=== PATIENT | female | born 1950 | race Caucasian/White ===

== ENCOUNTER 2016-08-26 06:07 | Inpatient (IN) | payer MEDICARE, OTHER ==
[2016-08-13 11:34] VITALS: BMI 31.2
[~2016-08-26 06:07] MED LIST: DEXAMETHASONE SOD PHOSPHATE 10 MG/ML 1 ML VIAL IV ONE; LACTATED RINGERS 1,000 ML IV SCH; MIDAZOLAM 2 MG/2 ML VIAL IV PRN; TRANEXAMIC ACID 1,000 MG in SODIUM CHLORIDE 0.9% 100 ML IVPB ONE
[2016-08-26] MEDS: ONDANSETRON 4 MG/2 ML VIAL IVP ONE ×2 (06:50→09:39)
[2016-08-26 06:53] LABS: Glucose,Whole Blood 150 mg/dL (75-99)
[2016-08-26] MEDS ORDERED: fentaNYL (PF) 50 MCG/ML 2 ML AMP ONE (07:03)
[2016-08-26] MEDS ORDERED: TRANEXAMIC ACID 1,000 MG/10 ML VIAL ONE (07:03)
[2016-08-26] MEDS ORDERED: LIDOCAINE 1% INJ 10MG/ML (20 ML MDV) ONE (07:03)
[2016-08-26] MEDS ORDERED: diphenhydrAMINE 50 MG/ML 1 ML VIAL ONE (07:03)
[2016-08-26] MEDS ORDERED: PROPOFOL 10 MG/ML 20 ML VIAL IV ONE (07:03)
[2016-08-26] MEDS ORDERED: HYDROmorphone (PF) 1 MG/ML ONE (07:03)
[2016-08-26] MEDS ORDERED: MIDAZOLAM 2 MG/2 ML VIAL ONE (07:03)
[2016-08-26] MEDS: ceFAZolin 2 GM in SODIUM CHLORIDE 0.9% 100 ML IVPB ONE ×2 (07:03→10:40)
[2016-08-26] MEDS ORDERED: SODIUM CHLORIDE 0.9% 100 ML BAG ONE (07:03)
[2016-08-26] MEDS ORDERED: KETOROLAC 30 MG/ML 1 ML VIAL ONE (07:03)
[2016-08-26] MEDS ORDERED: ceFAZolin 3,000 MG in SODIUM CHLORIDE 0.9% IRRIGATIO 3,000 ML IRRIGATION ONE (07:39)
[2016-08-26] MEDS ORDERED: LACTATED RINGERS 1,000 ML IV ONE (08:25)
[2016-08-26] MEDS ORDERED: NALOXONE 0.4 MG/ML 1 ML VIAL IV PRN (09:17)
[2016-08-26] MEDS ORDERED: MAGNESIUM HYDROXIDE 2,400 MG/10 ML CUP PO PRN (09:17)
[2016-08-26] MEDS ORDERED: TEMAZEPAM 15 MG CAP PO PRN (09:17)
[2016-08-26] MEDS ORDERED: NA PHOS,M-B/NA PHOS,DI-BA 133 ML ENEMA RECTAL PRN (09:17)
[2016-08-26] MEDS ORDERED: BISACODYL 10 MG SUPP RECTAL PRN (09:17)
[2016-08-26] MEDS ORDERED: HYDROcodone/APAP 7.5-325MG 1 EACH TAB PO PRN ×2 (09:17)
[2016-08-26] MEDS ORDERED: HYDROmorphone 1 MG/ML 1 ML SYRINGE IVP PRN ×3 (09:17)
[2016-08-26] MEDS: HYDROmorphone 1 MG/ML 1 ML SYRINGE IVP PRN ×4 (09:39→09:57)
[2016-08-26 09:55] LABS: Glucose,Whole Blood 189 mg/dL (75-99)
[2016-08-26] MEDS: LACTATED RINGERS 1,000 ML IV SCH ×2 (10:41→19:58)
[2016-08-26 11:37] LABS: Glucose,Whole Blood 230 mg/dL (75-99)
[2016-08-26] MEDS: HYDROmorphone PCA 5 MG/25 ML SYRINGE IV PRN ×2 (13:59→17:52)
--- NOTE | 2016-08-26 14:26 | XR ---
Left knee, limited HISTORY: Postop left knee arthroplasty 2 views of the left knee No comparisons Patient is status post left knee arthroplasty. Alignment is maintained. Lucency in the soft tissue co mpatible with postop change. There is a metallic density present just superior to the patella measuri ng approximately 3 to 4 mm in length which may represent a small foreign body, needle tip. IMPRESSION: Orthopedic follow-up. Retained foreign body as described. A Red message has been communicated to Zaira Tineo via the [employer] Critical Result system on 08/26/2016 10:27 AM, Message ID [id number].
--- NOTE | 2016-08-26 16:17 | CONS ---
DATE OF CONSULTATION: REASON FOR CONSULTATION: Advice regarding diabetes mellitus, asthma requested by Orthopedic Surgery. HISTORY OF PRESENT ILLNESS: This 66-year-old woman with past medical history of asthma, diabetes mellitus, GERD, hyperlipidemia, history of hypothyroidism, history of back surgery, DJD, history of cholecystectomy, being followed by Dr. Resendez in the outpatient setting admitted after left total knee arthroplasty. The patient underwent GA. Currently the patient is recovering from that anesthesia. The patient is still able to give a coherent history and also complaining of severe pain. There is no history of chest pain, no history of palpitations. No history of headache, loss of consciousness, seizures. No nausea, vomiting, diarrhea, fever or chills at this time. PAST MEDICAL HISTORY: History of asthma, diabetes mellitus, gastroesophageal reflux disease, hypertension, hypothyroidism, cholecystectomy. Medications prior to admission include home medications are: 1. Coumadin 2.5 mg q.48 hours and 7.1 mg once 2. VESIcare 10 mg q.h.s. 3. Saxaglipitin 2.5 mg p.o. daily. 4. Prandin 0.5 mg p.o. t.i.d. with meals. 5. Actos 45 mg daily. 6. Prilosec 20 mg with breakfast. 7. Multivitamin 1 p.o. daily. 8. [place] 5 mg 1 to 2 tablets q.4-6 p.r.n. 9. Lipitor 10 mg p.o. daily. ALLERGIES: TITANIUM, C[place]FL[place], PROZAC. FAMILY HISTORY: History of diabetes in the family. SOCIAL HISTORY: No history of smoking. No history of alcohol intake. REVIEW OF SYSTEMS: ENT: No diminished hearing or vision. CARDIOVASCULAR: No angina. RESPIRATORY: No cough or hemoptysis. GI: No nausea. : No dysuria. NERVOUS SYSTEM: No numbness or weakness. ALLERGY/IMMUNOLOGY: No asthma or hayfever. MUSCULOSKELETAL: As mentioned earlier. HEMATOLOGY: No history of anemia. ENDOCRINE: As mentioned earlier. CONSTITUTIONAL: As mentioned earlier. DERMATOLOGY: Negative. RHEUMATOLOGY: Negative. PSYCHIATRY: As mentioned earlier. PHYSICAL EXAMINATION: Alert and oriented x3. Pulse is 105, blood pressure is 150/70, respirations 20, temperature 98 degrees, pulse ox 90% on 4-L. HEENT: Conjunctivae normal. Oral mucosa moist. NECK: No jugular venous distention. No carotid bruit. No lymph node enlargement. CARDIOVASCULAR: S1 and S2. No S3, no S4. RESPIRATORY: Breath sounds diminished at the bases. No rhonchi, no crackles. ABDOMEN: Soft, obese, nontender. No mass palpable. LEGS: Status post surgery knee surgery. NERVOUS SYSTEM: Higher function as mentioned. Moves all four limbs. No focal motor deficits. LYMPHATIC: No lymphadenopathy in the neck, axillae or groin. SKIN: No ulcer, rash or bleeding. LABS: At this time shows glucose is 230. Other labs are noted. ASSESSMENT: 1. Status post left total knee joint arthroplasty. 2. Diabetes mellitus type 2. 3. History of asthma. 4. History of gastroesophageal reflux disease. 5. Hyperlipidemia. 6. Hypothyroidism. 7. History of stomach ulcer. 8. History of section. 9. History of cholecystectomy. 10. Obesity with body mass index of 31.2. RECOMMENDATIONS AND DISCUSSION: In this 60-year-old woman who presented with multiple medical problems, we will monitor the patient closely. Continue the current medications. Continue symptomatic treatment. We will resume the home medications. DVT prophylaxis. GI prophylaxis. Follow the patient closely. Patient may be asked to follow up with Dr. Resendez closely after discharge. Thank you for letting us participate in the care of this patient. EVANGELINA
[2016-08-26 17:16] LABS: Glucose,Whole Blood 255 mg/dL (75-99)
[2016-08-26] MEDS: PANTOPRAZOLE 40 MG TABLET PO SCH (17:59)
[2016-08-26] MEDS: ceFAZolin 2 GM in SODIUM CHLORIDE 0.9% 100 ML IVPB SCH ×2 (17:59→23:41)
[2016-08-26] MEDS: REPAGLINIDE 0.5 MG TAB PO SCH (17:59)
[2016-08-26] MEDS ORDERED: WARFARIN 5 MG TAB PO ONE (18:00)
[2016-08-26] MEDS: INSULIN LISPRO (humaLOG) 300 UNIT/3 ML VIAL SQ SCH ×2 (18:43→21:10)
[2016-08-26] MEDS: SENNOSIDES-DOCUSATE SODIUM 1 EACH TAB PO SCH (20:00)
[2016-08-26] MEDS: OXYBUTYNIN XL 5 MG TAB.ER.24 PO SCH (20:00)
[2016-08-26 21:21] LABS: Glucose,Whole Blood 169 mg/dL (75-99)
[2016-08-27] MEDS: HYDROmorphone PCA 5 MG/25 ML SYRINGE IV PRN (03:09)
[2016-08-27] MEDS: LACTATED RINGERS 1,000 ML IV SCH (05:02)
[2016-08-27 07:05] LABS: Glucose,Whole Blood 161 mg/dL (75-99)
[2016-08-27 07:34] LABS: INR 1.7 (<1.1); Prothrombin Time 16.5 sec (9.0-12.0)
[2016-08-27 07:44] LABS: Anion Gap 12 mmol/L; Blood Urea Nitrogen 19 mg/dL (7-17); Calcium 8.2 mg/dL (8.4-10.2); Carbon Dioxide 28 mmol/L (22-30); Chloride 99 mmol/L (98-107); Glucose 176 mg/dL (74-99); Non-African American GFR(MDRD) >60 (>60 ml/min/1.73 sqM); Sodium 139 mmol/L (137-145)
[2016-08-27 07:53] LABS: Basophils % (A) 0 %; CH 32.8; CHCM 32.1; Eosinophils % (A) 0 %; HCT 37.4 % (34.0-46.0); HDW 2.23; HGB 12.1 gm/dL (11.4-16.0); Luc # (Auto) 0.44; Luc % (Auto) 3; Lymphocytes # (A) 1.3 k/uL (1.0-4.8); Lymphocytes % (A) 8 %; MCH 33.1 pg (25.0-35.0); MCHC 32.3 g/dL (31.0-37.0); MCV 102.4 fL (80.0-100.0); Mean Platelet Volume 7.1; Monocytes # (A) 1.2 k/uL (0-1.0); Monocytes % (A) 7 %; Neutrophils # (A) 13.8 k/uL (1.3-7.7); Neutrophils % (A) 83 %; RBC 3.66 m/uL (3.80-5.40); RDW 12.4 % (11.5-15.5); WBC 16.7 k/uL (3.8-10.6); WBC (Perox) 17.88
[2016-08-27] MEDS: REPAGLINIDE 0.5 MG TAB PO SCH ×2 (07:57→12:36)
[2016-08-27] MEDS: ATORVASTATIN 10 MG TAB PO SCH (07:57)
[2016-08-27] MEDS: PIOGLITAZONE 45 MG TAB PO SCH (07:57)
[2016-08-27] MEDS: LINAGLIPTIN 5 MG TABLET PO SCH (07:57)
[2016-08-27] MEDS: PANTOPRAZOLE 40 MG TABLET PO SCH (07:57)
[2016-08-27] MEDS: hydrOXYzine PAMOATE 25 MG CAP PO PRN ×3 (07:57→17:52)
--- NOTE | 2016-08-27 08:42 | P.PN ---
Subjective Principal diagnosis: Status post left total knee arthroplasty This is a 66 year-old female post left total knee arthroplasty. This is post- op day 1. The patient was evaluated at the bedside today. The patient denies nausea, vomiting, abdominal pain, shortness of breath, and chest pain this morning. She states her pain is midly controlled at this time. The patient has not been up with physical therapy yet this morning. Objective - Vital Signs Vital signs: Vital Signs Temp 98.7 F 08/27/16 03:51 Pulse 112 H 08/27/16 03:51 Resp 16 08/27/16 03:51 BP 125/58 08/27/16 03:51 Pulse Ox 95 08/27/16 03:51 Intake & Output 08/26/16 08/27/16 08/27/16 18:59 06:59 18:59 Intake Total 3272 1750 Output Total 1200 750 Balance 2072 1000 Weight 82.554 kg Intake: IV 2552 900 Lactated Ringers 1,000 ml 700 900 @ 100 mls/hr IV .Q10H NERIS Rx#:[id number] ceFAZolin 2 gm In Sodium 100 Chloride 0.9% 100 ml @ 100 mls/hr IVPB ONCE ONE Rx#:[id number] Oral 720 850 Output: Urine 1150 750 Estimated Blood Loss 50 Other: Voiding Method Indwelling Catheter - Exam The patient does not appear in acute distress. Alert and orientated x3. Dressing is clean dry and intact. Incision appears fine with no erythema or active drainage. Calf is soft and nontender. Good foot and ankle motion without difficulty. Sensation and circulatory status is intact. - Labs CBC & Chem 7: 08/27/16 07:00 08/27/16 07:00 Labs: Abnormal Lab Results - Last 24 Hours (Table) 08/26/16 08/26/16 08/26/16 Range/Units 09:52 11:35 17:13 WBC (3.8-10.6) k/uL RBC (3.80-5.40) m/uL MCV (80.0-100.0) fL Neutrophils # (1.3-7.7) k/uL Monocytes # (0-1.0) k/uL PT (9.0-12.0) sec BUN (7-17) mg/dL Glucose (74-99) mg/dL POC Glucose (mg/dL) 189 H 230 H 255 H (75-99) mg/dL Calcium (8.4-10.2) mg/dL 08/26/16 08/27/16 08/27/16 Range/Units 21:07 07:00 07:00 WBC 16.7 H (3.8-10.6) k/uL RBC 3.66 L (3.80-5.40) m/uL MCV 102.4 H (80.0-100.0) fL Neutrophils # 13.8 H (1.3-7.7) k/uL Monocytes # 1.2 H (0-1.0) k/uL PT 16.5 H (9.0-12.0) sec BUN (7-17) mg/dL Glucose (74-99) mg/dL POC Glucose (mg/dL) 169 H (75-99) mg/dL Calcium (8.4-10.2) mg/dL 08/27/16 08/27/16 Range/Units 07:00 07:03 WBC (3.8-10.6) k/uL RBC (3.80-5.40) m/uL MCV (80.0-100.0) fL Neutrophils # (1.3-7.7) k/uL Monocytes # (0-1.0) k/uL PT (9.0-12.0) sec BUN 19 H (7-17) mg/dL Glucose 176 H (74-99) mg/dL POC Glucose (mg/dL) 161 H (75-99) mg/dL Calcium 8.2 L (8.4-10.2) mg/dL Laboratory Tests 08/27/16 07:00 PT 16.5 H INR 1.7 Assessment and Plan (1) Primary localized osteoarthritis of left knee Status: Acute (2) Status post total left knee replacement not using cement Status: Acute Plan: 1. Continue pain control 2. Anticoagulation with Coumadin per protocol 3. Start physical therapy, CPM, and ambulation 4. Anticipate discharge home with homecare upon discharge
[2016-08-27] MEDS: ONDANSETRON 4 MG/2 ML VIAL IVP PRN ×2 (09:40→12:41)
[2016-08-27] MEDS: INSULIN LISPRO (humaLOG) 300 UNIT/3 ML VIAL SQ SCH ×4 (09:43→20:55)
[2016-08-27] MEDS ORDERED: HYDROcodone/APAP 10-325MG 1 EACH TAB PO PRN (10:39)
[2016-08-27 10:45] LABS: Hemoglobin A1C 6.8 % (4.2-6.1)
[2016-08-27] MEDS: KETOROLAC 30 MG/ML 1 ML VIAL IVP SCH ×3 (11:19→23:40)
[2016-08-27] MEDS: MULTIVITAMINS, THERA 1 EACH TAB PO SCH (12:36)
[2016-08-27] MEDS: HYDROcodone/APAP 10-325MG 1 EACH TAB PO PRN ×3 (12:36→22:59)
[2016-08-27 12:39] LABS: Glucose,Whole Blood 167 mg/dL (75-99)
[2016-08-27] MEDS ORDERED: HYDROmorphone 1 MG/ML 1 ML SYRINGE IVP PRN (16:04)
[2016-08-27 17:05] LABS: Glucose,Whole Blood 142 mg/dL (75-99)
[2016-08-27] MEDS: REPAGLINIDE 1 MG TAB PO SCH (17:51)
[2016-08-27] MEDS ORDERED: WARFARIN 5 MG TAB PO ONE (18:00)
[2016-08-27 20:16] LABS: Glucose,Whole Blood 156 mg/dL (75-99)
[2016-08-27] MEDS: OXYBUTYNIN XL 5 MG TAB.ER.24 PO SCH (20:55)
[2016-08-27] MEDS: SENNOSIDES-DOCUSATE SODIUM 1 EACH TAB PO SCH (20:55)
[2016-08-27] MEDS ORDERED: PANTOPRAZOLE 40 MG/10 ML VIAL IVP SCH (21:00)
[2016-08-28] MEDS: PANTOPRAZOLE 40 MG TABLET PO SCH ×3 (00:51→20:35)
[2016-08-28] MEDS: HYDROcodone/APAP 10-325MG 1 EACH TAB PO PRN ×3 (04:56→17:55)
--- NOTE | 2016-08-28 06:06 | OP ---
DATE OF SERVICE: 08/26/2016 SURGEON: ANGIE ENG DO DINING MANAGER: Zaira Tineo NP PREOPERATIVE DIAGNOSIS: Degenerative joint disease of the left knee. POSTOPERATIVE DIAGNOSIS: Degenerative joint disease of the left knee. OPERATION: Left total knee replacement arthroplasty utilizing Bruno Persona component press-fit components. ANESTHESIA: ESTIMATED BLOOD LOSS: SPECIMENS REMOVED: COMPLICATIONS: OPERATIVE FINDINGS: DESCRIPTION OF PROCEDURE: The patient was taken to the operative suite and placed in the supine position. Spinal anesthesia was performed by the department of anesthesiology. A Betadine prep was carried out over the left knee from mid thigh to mid calf. Sterile drapes applied in the usual manner. Pneumatic tourniquet was inflated to 350 mmHg. A medial parapatellar incision was developed. Further dissection through the subcutaneous tissue was performed. The medial retinaculum was incised. The patella was everted and dislocated laterally and the leg was brought in flexion and held in the leg thompson. The intramedullary cutting guide and jig was utilized for appropriate cuts in preparation for a size 5 left femoral component. Provisionary component was impacted into position. Alignment and stability were noted. Excellent alignment of bone component interface was noted. The tibial cutting guide and jig was brought into position. Appropriate wafer cut was developed. The menisci of both the medial and lateral were excised. A size 3 trabecular plate and size 3 metal-backed plate was selected and a 12 mm spacer was prepared for component. The plate was marked for position and appropriate peg holes were initiated. The area was copiously irrigated with Pulsavac antibiotic solution. With the patella everted, a shelving planer was utilized in preparing for size 29 patellar component. All provisionary components were removed and copious antibiotic solution was utilized in irrigating the joint preparation for final components. With the knee in flexion, the trabecular size 3 was impacted into position with excellent bone interface was noted. The left femoral component was then impacted into position and again bone component interface was excellent and well maintained. The 29 mm patellar component was placed into position of the peg hole and impacted and secured. The size 12 femoral component was locked into the plate and alignment and position were well maintained. With the knee in slight flexion, copious irrigation was performed. Pneumatic tourniquet was deflated. Superficial bleeding was controlled with electrocautery at this time. The medial retinaculum was then approximated with #3 Vicryl suture in horizontal mattress fashion. The medial retinaculum was reinforced with #2 Vicryl Quill suture in running fashion. Subcutaneous tissue approximated with 2-0 Vicryl suture in interrupted fashion, a #3 Quill was utilized in subcuticular closure. Dermabond was utilized in sealing the wound. Betadine, Adaptic and sterile pressure dressing was applied. The patient was transferred to the recovery room in satisfactory postoperative condition. GROSS PATHOLOGY: There was evidence of degenerative joint disease of the left knee tricompartment. EVANGELINA
[2016-08-28 06:57] LABS: Glucose,Whole Blood 174 mg/dL (75-99)
[2016-08-28 07:23] LABS: INR 2.5 (<1.1); Prothrombin Time 24.2 sec (9.0-12.0)
[2016-08-28] MEDS: LINAGLIPTIN 5 MG TABLET PO SCH (07:58)
[2016-08-28] MEDS: MULTIVITAMINS, THERA 1 EACH TAB PO SCH (07:58)
[2016-08-28] MEDS: ATORVASTATIN 10 MG TAB PO SCH (07:58)
[2016-08-28] MEDS: PIOGLITAZONE 45 MG TAB PO SCH (07:58)
[2016-08-28] MEDS: REPAGLINIDE 1 MG TAB PO SCH ×3 (07:59→17:55)
[2016-08-28] MEDS: INSULIN LISPRO (humaLOG) 300 UNIT/3 ML VIAL SQ SCH ×4 (08:02→21:03)
--- NOTE | 2016-08-28 08:33 | P.PN ---
Subjective Principal diagnosis: Status post left total knee arthroplasty This is a 66 year-old female post left total knee arthroplasty. This is post- op day 2. The patient was evaluated at the bedside today. The patient denies nausea, vomiting, abdominal pain, shortness of breath, and chest pain this morning. She states her pain is better controlled today. The patient states she is ambulating to the bathroom. Objective - Vital Signs Vital signs: Vital Signs Temp 98.2 F 08/28/16 07:57 Pulse 103 H 08/28/16 07:57 Resp 16 08/28/16 07:57 BP 146/65 08/28/16 07:57 Pulse Ox 92 L 08/28/16 07:57 Intake & Output 08/27/16 08/28/16 08/28/16 18:59 06:59 18:59 Intake Total 800 200 Output Total 700 Balance 100 200 Weight 82.554 kg Intake: IV 200 Lactated Ringers 1,000 ml 200 @ 100 mls/hr IV .Q10H NERIS Rx#:[id number] Oral 600 200 Output: Urine 700 Uretheral ([place]) 300 Other: # Voids 1 2 - Exam The patient does not appear in acute distress. Alert and orientated x3. Dressing is clean dry and intact. Incision appears fine with no erythema or active drainage. Calf is soft and nontender. Good foot and ankle motion without difficulty. Sensation and circulatory status is intact. - Labs CBC & Chem 7: 08/27/16 07:00 08/27/16 07:00 Labs: Abnormal Lab Results - Last 24 Hours (Table) 08/27/16 08/27/16 08/27/16 Range/Units 07:00 12:27 17:00 PT (9.0-12.0) sec POC Glucose (mg/dL) 167 H 142 H (75-99) mg/dL Hemoglobin A1c 6.8 H (4.2-6.1) % 08/27/16 08/28/16 08/28/16 Range/Units 20:15 06:35 06:53 PT 24.2 H (9.0-12.0) sec POC Glucose (mg/dL) 156 H 174 H (75-99) mg/dL Hemoglobin A1c (4.2-6.1) % Laboratory Tests 08/28/16 06:35 PT 24.2 H INR 2.5 Assessment and Plan (1) Primary localized osteoarthritis of left knee Status: Acute (2) Status post total left knee replacement not using cement Status: Acute Plan: 1. Continue pain control 2. Anticoagulation with Coumadin per protocol 3. Continue physical therapy, CPM, and ambulation 4. Anticipate discharge home with homecare possibly tomorrow.
--- NOTE | 2016-08-28 08:57 | PN ---
DATE OF SERVICE: 08/27/2016 This 66-year-old woman who was admitted after left total knee arthroplasty, is improving significantly. No chest pain or palpitation. No fever. On exam, alert and oriented x3. Pulse 97, blood pressure 130/68, respirations 16, temperature 97.3, pulse ox 93% on room air. HEENT: Conjunctivae normal. NECK: No jugular venous distention. CARDIOVASCULAR: S1 and S2, muffled. RESPIRATORY: Breath sounds diminished at the bases. A few rhonchi. No crackles. ABDOMEN: Soft. LEGS: Status post arthroplasty. NERVOUS SYSTEM: No focal deficits. LABS: WBC is 16, MCV 102.5. Accu-Cheks noted. Calcium is 8.2. ASSESSMENT: 1. Status post left total knee joint arthroplasty. 2. Diabetes mellitus type 2. 3. Increased WBC. 4. Increased MCV. 5. History of gastroesophageal reflux disease. 6. History of asthma. 7. Hyperlipidemia. 8. Hypothyroidism. 10. History of sinus surgery. 11. History of cholecystitis. 12. Obesity, body mass index of 31.2. 13. FULL CODE. RECOMMENDATIONS AND DISCUSSION: In this 66-year-old woman who presented with multiple medical problems, monitor the patient closely. Continue the current medications, continue symptomatic treatment. Will monitor blood sugars closely. DVT prophylaxis. Incentive spirometry. Will follow the patient closely with you. Further recommendations to follow. MTDD
--- NOTE | 2016-08-28 10:03 | US ---
EXAMINATION TYPE: US venous doppler duplex LE LT DATE OF EXAM: 08/28/2016 9:13 AM COMPARISON: NONE CLINICAL HISTORY: US. Lt knee pain s/p left knee replacement SIDE PERFORMED: Left VESSELS IMAGED: External Iliac Vein (EIV) Common Femoral Vein Deep Femoral Vein Greater Saphenous Vein * Femoral Vein Popliteal Vein Small Saphenous Vein * Proximal Calf Veins (* superficial vessels) Left Leg: Negative for DVT IMPRESSION: No evidence for DVT at this time.
[2016-08-28] MEDS: KETOROLAC 30 MG/ML 1 ML VIAL IVP SCH ×2 (11:37→17:59)
[2016-08-28 11:38] LABS: Glucose,Whole Blood 145 mg/dL (75-99)
--- NOTE | 2016-08-28 13:27 | XR ---
EXAMINATION TYPE: XR chest 2V DATE OF EXAM: 08/28/2016 1:18 PM COMPARISON: NONE HISTORY: Shortness of breath TECHNIQUE: Frontal and lateral views of the chest are obtained. FINDINGS: Scattered senescent parenchymal changes noted. Hyperinflation compatible with COPD. No evidence for infiltrate. No evidence for atelectasis. Heart size is enlarged. Mediastinal structures are stable and grossly unremarkable. No evidence for hilar prominence. Degenerative changes dorsal spine. IMPRESSION: 1. No evidence for acute pulmonary disease.
--- NOTE | 2016-08-28 15:53 | PN ---
DATE OF SERVICE: 08/28/2016 This 66-year-old woman was admitted after left total knee arthroplasty, improving significantly. No chest pain, no palpitations. No fever. On exam, alert and oriented x3. Pulse is 98, blood pressure 129/62, respiratory rate 15, temperature 99, pulse ox 93% on room air. HEENT: Conjunctivae normal. NECK: No jugular venous distention. CARDIOVASCULAR: S1, S2 muffled. RESPIRATORY: Breath sounds diminished at the bases. A few scattered rhonchi. No crackles. ABDOMEN: Soft and nontender. LEGS: No edema. No swelling. Nervous system: No focal deficits. LABS: At this time is INR 2.5, WBC 16.7, hemoglobin A1C is 8.2. ASSESSMENT: 1. Status post left total knee joint arthroplasty. 2. Type 2 diabetes mellitus. 3. Increased WBC. 4. Increased MCV. 5. Gastroesophageal reflux disease. 6. History of asthma. 7. History of hyperlipidemia. 8. Hypothyroidism. 9. History of anxiety. 10. History of cholecystectomy. 11. History of obesity with body mass index 31.7. 12. FULL CODE. RECOMMENDATIONS AND DISCUSSION: Recommend to continue current medications. Continue with symptomatic treatment. Otherwise, CBC, UA with micro, incentive spirometry, follow the patient closely with. Further recommendations to follow. MTDD
[2016-08-28 16:20] LABS: Appearance,Urine Clear (Clear); Bacteria,Urine Rare /hpf; Bilirubin,Urine Negative (Negative); Glucose,Urine (UA) Negative (Negative); Ketones,Urine Negative (Negative); Leukocyte Esterase,Urine Small (Negative); Nitrite,Urine Negative (Negative); Particle Count 1322; Protein,Urine Negative (Negative); RBC,Urine 1 /hpf (0-5); Specific Gravity,Urine 1.004 (1.001-1.035); UA Billing (MACRO vs. MICRO) MICRO; Urobilinogen,Urine <2.0 mg/dL (<2.0); WBC,Urine 6 /hpf (0-5)
[2016-08-28 16:51] LABS: Glucose,Whole Blood 145 mg/dL (75-99)
[2016-08-28] MEDS ORDERED: WARFARIN 2.5 MG TAB PO ONE (18:00)
[2016-08-28] MEDS: OXYBUTYNIN XL 5 MG TAB.ER.24 PO SCH (20:35)
[2016-08-28] MEDS: SENNOSIDES-DOCUSATE SODIUM 1 EACH TAB PO SCH (20:35)
[2016-08-28 20:59] LABS: Glucose,Whole Blood 137 mg/dL (75-99)
[2016-08-29] MEDS: HYDROcodone/APAP 10-325MG 1 EACH TAB PO PRN ×3 (00:13→12:14)
[2016-08-29] MEDS: KETOROLAC 30 MG/ML 1 ML VIAL IVP SCH ×3 (00:56→12:15)
[2016-08-29 07:10] LABS: Basophils % (A) 0 %; CH 33.3; CHCM 32.6; Eosinophils # (A) 0.2 k/uL (0-0.7); Eosinophils % (A) 2 %; HCT 35.1 % (34.0-46.0); HDW 2.25; HGB 11.3 gm/dL (11.4-16.0); Luc # (Auto) 0.37; Luc % (Auto) 4; Lymphocytes # (A) 1.5 k/uL (1.0-4.8); Lymphocytes % (A) 16 %; MCH 33.2 pg (25.0-35.0); MCHC 32.3 g/dL (31.0-37.0); MCV 102.7 fL (80.0-100.0); Macrocytosis Slight; Monocytes # (A) 0.9 k/uL (0-1.0); Monocytes % (A) 9 %; Neutrophils # (A) 6.7 k/uL (1.3-7.7); Neutrophils % (A) 69 %; RBC 3.41 m/uL (3.80-5.40); RDW 12.5 % (11.5-15.5); WBC 9.7 k/uL (3.8-10.6)
[2016-08-29 07:14] LABS: Glucose,Whole Blood 96 mg/dL (75-99)
[2016-08-29 07:28] LABS: INR 2.5 (<1.1); Prothrombin Time 24.2 sec (9.0-12.0)
[2016-08-29 07:45] VITALS: BP 133/61; PULSE 100; RESP 16; TEMP 96.8
[2016-08-29] MEDS: INSULIN LISPRO (humaLOG) 300 UNIT/3 ML VIAL SQ SCH ×2 (07:45→12:16)
[2016-08-29] MEDS: REPAGLINIDE 1 MG TAB PO SCH ×2 (08:58→12:48)
[2016-08-29] MEDS: LINAGLIPTIN 5 MG TABLET PO SCH (08:59)
[2016-08-29] MEDS: PANTOPRAZOLE 40 MG TABLET PO SCH (08:59)
[2016-08-29] MEDS: PIOGLITAZONE 45 MG TAB PO SCH (08:59)
[2016-08-29] MEDS: ATORVASTATIN 10 MG TAB PO SCH (08:59)
--- NOTE | 2016-08-29 09:48 | P.DS ---
Providers Date of admission: 08/26/16 06:07 Expected date of discharge: 08/29/16 Attending physician: Perico Horta Consults: 08/26/16 09:17 Consult Physician Routine Consulting Provider: Armen Christine Consult Reason/Comments: medical management Do you want consulting provider notified?: Yes Primary care physician: Dipti Paris Charbal - Discharge Diagnosis(es) (1) Primary localized osteoarthritis of left knee Current Visit: Yes Status: Acute (2) Status post total left knee replacement not using cement Current Visit: Yes Status: Acute Hospital Course: This is a pleasant 66-year-old female last seen in our office with complaints of left knee pain. Patient has known history of degenerative arthritis of the left knee and presented to discuss options. After discussion and consideration , the patient elected to proceed with a left total knee arthroplasty. Patient was seen preoperatively, and medically cleared for surgery by Dr. Resendez. Patient was admitted to [facility] and underwent left total knee arthroplasty with Dr. Horta on 08/26/2016. The procedure was performed without complications or sequelae. The patient is seen and evaluated at bedside today. Pain is well-controlled. Patient has no new complaints today and denies any fevers, chills, nausea, vomiting, or shortness of breath. Vital signs are stable. Dressing is clean dry and intact. Incision looks fine with no erythema or active drainage. Calf is soft and nontender. Patient has full foot and ankle motion without difficulty. Patient's left lower extremity is neurovascularly intact. The patient is orthopedically stable for discharge to skilled rehab today. Pertinent Studies: Laboratory Tests 08/29/16 08/29/16 06:40 06:40 WBC 9.7 RBC 3.41 L Hgb 11.3 L MCV 102.7 H PT 24.2 H INR 2.5 Patient Condition at Discharge: Stable Plan - Discharge Summary New Discharge Prescriptions: Aspirin 325 mg PO DAILY #30 tab HYDROcodone/APAP 10-325MG [[place] 10-325] 1 - 2 tab PO Q4-6H PRN #60 tab PRN Reason: Pain Sennosides-Docusate Sodium [Senokot-S] 2 tab PO DAILY #30 tablet Warfarin [Coumadin] 2.5 mg PO DIRECTED #30 tab Discharge Medication List Atorvastatin [Lipitor] 10 mg PO DAILY 09/24/15 [History] Omeprazole [PriLOSEC] 20 mg PO AC-BRKFST 09/24/15 [History] Pioglitazone HCl [Actos] 45 mg PO DAILY 09/24/15 [History] HYDROcodone/APAP 5-325MG [[place] 5-325] 1 - 2 tab PO Q4-6H PRN 08/13/16 [History] Multivitamins, Thera [Multivitamin] 1 tab PO DAILY 08/13/16 [History] Repaglinide [Prandin] 0.5 mg PO TID-W/MEALS 08/13/16 [History] Saxagliptin HCl [Onglyza] 2.5 mg PO DAILY 08/13/16 [History] Solifenacin Succinate [Vesicare] 10 mg PO HS 08/13/16 [History] Warfarin [Coumadin] 2.5 mg PO Q48H 08/26/16 [History] Warfarin [Coumadin] 7.5 mg PO ONCE 08/26/16 [History] Aspirin 325 mg PO DAILY #30 tab 08/29/16 [Rx] HYDROcodone/APAP 10-325MG [[place] 10-325] 1 - 2 tab PO Q4-6H PRN #60 tab [Rx] Sennosides-Docusate Sodium [Senokot-S] 2 tab PO DAILY #30 tablet 08/29/16 [Rx] Warfarin [Coumadin] 2.5 mg PO DIRECTED #30 tab 08/29/16 [Rx] Follow up Appointment(s)/Referral(s): Perico Horta DO [Doctor of Osteopathic Medicine] - 2 Weeks Ambulatory/Diagnostic Orders: Continuous Passive Motion (CPM) Machine [DME.AMB1] Time Frame: 3 Weeks, Location : Determined By Patient Activity/Diet/Wound Care/Special Instructions: Weightbearing as tolerated with a walker Coumadin 2.5 mg 1 by mouth every other day for 7 days then take Aspirin 325mg daily for 1 month CPM 5-6 hours daily May shower in 3 days if no drainage from incision Keep incision clean and dry Call [facility] [phone] with questions or concerns Discharge Disposition: TRANSFER TO SNF/ECF
[2016-08-29 11:31] LABS: Glucose,Whole Blood 188 mg/dL (75-99)
[2016-08-29] MEDS: MULTIVITAMINS, THERA 1 EACH TAB PO SCH (12:15)
--- NOTE | 2016-08-29 16:45 | PN ---
DATE OF SERVICE: 08/29/2016 This 66-year-old woman was admitted after left knee arthroplasty, has improved significantly. No chest pain, no palpitations, no fever. ECF rehab is being considered. On exam, alert and oriented x2. Pulse 100, blood pressure is 130/67, respirations 16, temperature 97.8, pulse 96% on room air. HEENT: Conjunctivae normal. NECK: No jugular venous distention. CARDIOVASCULAR: S1 and S2, muffled. RESPIRATORY: Breath sounds diminished at the bases. A few scattered rhonchi and crackles. ABDOMEN: Soft, nontender. LEGS: Status post surgery. NERVOUS SYSTEM: No focal deficits. LABS: WBC 9, hemoglobin 11.3. ASSESSMENT: 1. Status post left total knee joint arthroplasty. 2. Diabetes mellitus type 2. 3. Increased WBC. 4. Increased MCV. 5. History of gastroesophageal reflux disease. 6. History of asthma. 7. Hyperlipidemia. 8. Hypothyroidism. 9. History of anxiety. 10. History of cholecystectomy. 11. History of obesity with body mass index of 31.7. 12. FULL CODE. RECOMMENDATIONS AND DISCUSSION: This 66-year-old woman who presented with multiple complex medical issues, will monitor the patient closely. Continue the current medications, continue symptomatic treatment. Otherwise, at this time I recommend resuming the home medications. Closely follow with Dr. Chavarria and Dr. Marinelli in ECF and follow with Dr. Resendez after discharge from ECF. Follow-up labs of CBC, BMP in ECF. DVT prophylaxis per Orthopedic Surgery. Incentive spirometry.
== END 2016-08-29 14:31 | DRG 470 ==
LOC: 2ORMAIN 06:07 → 3SUR 09:16
PROVIDERS: ADMIT Orthopaedic Surgery; ATTEND Orthopaedic Surgery
PROC: 0SRD0JA Replacement of Left Knee Joint with Synthetic Substitute, Uncemented, Open Approach (ICD-10-PCS; principal; 2016-08-26 07:00)
DX: M17.12 Unilateral primary osteoarthritis, left knee (principal); I10 Essential (primary) hypertension; E03.9 Hypothyroidism, unspecified; E11.9 Type 2 diabetes mellitus without complications; E78.5 Hyperlipidemia, unspecified; K21.9 Gastro-esophageal reflux disease without esophagitis; Z79.899 Other long term (current) drug therapy; Z88.8 Allergy status to other drugs, medicaments and biological substances
CPT/HCPCS: 71020; 80048; 81001; 83036; 85025; 85610; 88300

== ENCOUNTER → 2017-12-02 | Outpatient (CLI) | payer MEDICARE, OTHER ==
--- NOTE | 2017-12-04 11:37 | MM ---
Reason for exam: screening (asymptomatic). Last mammogram was performed 3 years and 5 months ago. History: Patient is postmenopausal. Cyst aspiration of the right breast. Physical Findings: A clinical breast exam by your physician is recommended on an annual basis and results should be correlated with mammographic findings. MG 3D Screening Mammo W/Cad Bilateral CC and MLO view(s) were taken. Prior study comparison: June 22, 2014, bilateral MG screening mammo w CAD. June 15, 2009, bilateral diagnostic digital mammog. There are scattered fibroglandular densities. There is chronic nodularity in the left breast. No significant changes when compared with prior studies. ASSESSMENT: Negative, BI-RAD 1 RECOMMENDATION: Routine screening mammogram of both breasts in 1 year.
== END | disposition home or self-care (01) ==
LOC: RADMAMWWP 13:30
PROVIDERS: ATTEND Family Medicine
DX: Z12.31 Encounter for screening mammogram for malignant neoplasm of breast (principal)
CPT/HCPCS: 77063; 77067

== ENCOUNTER → 2018-02-10 | Outpatient (CLI) | payer MEDICARE, OTHER ==
[2018-02-10 13:47] LABS: HGB 13.3 gm/dL (11.4-16.0); MCH 33.4 pg (25.0-35.0); MCHC 33.1 g/dL (31.0-37.0); MCV 100.7 fL (80.0-100.0); Mean Platelet Volume 7.9; Platelet Count 268 k/uL (150-450); RBC 3.97 m/uL (3.80-5.40); WBC 8.8 k/uL (3.8-10.6)
[2018-02-10 15:04] LABS: Erythrocyte Sedimentation Rate 12 mm/hr (0-20)
== END | disposition home or self-care (01) ==
LOC: LABWHC1 12:49
PROVIDERS: ATTEND Orthopaedic Surgery
DX: Z48.89 Encounter for other specified surgical aftercare (principal); E11.9 Type 2 diabetes mellitus without complications; R60.1 Generalized edema; M25.562 Pain in left knee; Z96.652 Presence of left artificial knee joint
CPT/HCPCS: 36415; 85027; 85652; 86140

== ENCOUNTER → 2018-02-16 | Outpatient (CLI) | payer MEDICARE, OTHER ==
--- NOTE | 2018-02-17 13:10 | NM ---
EXAMINATION TYPE: NM WBC limited DATE OF EXAM: 02/17/2018 COMPARISON: Left knee x-ray August 26, 2016 HISTORY: Left knee pain and swelling with history of prior surgery August 26, 2016 TECHNIQUE: Following administration of 22.7 mCi Tc99m Ceretec. Images obtained 4 hour(s) and 24 joe r(s) post injection of the bilateral knees and several projections. FINDINGS: Lucency from metallic prosthesis left knee is present. There is no suspicious focal or diffuse increa se uptake in the left knee surrounding prosthesis versus opposite right knee on 4. or 24 hour delaye d images IMPRESSION: Normal white blood cell scan. No evidence for abnormal tracer activity to suggest infection.
== END | disposition home or self-care (01) ==
LOC: RADNMMAIN 06:59
PROVIDERS: ATTEND Orthopaedic Surgery
DX: M25.562 Pain in left knee (principal); E11.9 Type 2 diabetes mellitus without complications; R60.1 Generalized edema; Z96.652 Presence of left artificial knee joint
CPT/HCPCS: 78805; A9569

== ENCOUNTER → 2018-12-03 | Outpatient (CLI) | payer MEDICARE, OTHER ==
--- NOTE | 2018-12-07 08:27 | MM ---
Reason for exam: screening (asymptomatic). Last mammogram was performed 1 year ago. History: Patient is postmenopausal. Cyst aspiration of the right breast. Physical Findings: A clinical breast exam by your physician is recommended on an annual basis and results should be correlated with mammographic findings. MG 3D Screening Mammo W/Cad Bilateral CC and MLO view(s) were taken. Prior study comparison: December 02, 2017, bilateral MG 3d screening mammo w/cad. June 22, 2014, bilateral MG screening mammo w CAD. There are scattered fibroglandular densities. There is chronic nodularity in the left breast. No significant changes when compared with prior studies. ASSESSMENT: Negative, BI-RAD 1 RECOMMENDATION: Routine screening mammogram of both breasts in 1 year.
== END | disposition home or self-care (01) ==
LOC: RADMAMWWP 13:49
PROVIDERS: ATTEND Family Medicine
DX: Z12.31 Encounter for screening mammogram for malignant neoplasm of breast (principal)
CPT/HCPCS: 77063; 77067

== ENCOUNTER → 2020-04-16 | Outpatient (CLI) | payer MEDICARE, OTHER ==
--- NOTE | 2020-04-17 10:20 | MM ---
Reason for exam: screening (asymptomatic). Last mammogram was performed 1 year and 4 months ago. History: Patient is postmenopausal. Cyst aspiration of the right breast. Physical Findings: A clinical breast exam by your physician is recommended on an annual basis and results should be correlated with mammographic findings. MG 3D Screening Mammo W/Cad Bilateral CC and MLO view(s) were taken. Prior study comparison: December 03, 2018, bilateral MG 3d screening mammo w/cad. December 02, 2017, bilateral MG 3d screening mammo w/cad. The breast tissue is heterogeneously dense. This may lower the sensitivity of mammography. Stable benign calcifications. There is chronic nodularity bilaterally. There is no discrete abnormality. No significant changes when compared with prior studies. ASSESSMENT: Benign, BI-RAD 2 RECOMMENDATION: Routine screening mammogram of both breasts in 1 year.
== END | disposition home or self-care (01) ==
LOC: RADMAMWWP 09:56
PROVIDERS: ATTEND Family Medicine
DX: Z12.31 Encounter for screening mammogram for malignant neoplasm of breast (principal)
CPT/HCPCS: 77063; 77067

== ENCOUNTER → 2020-08-29 | Outpatient (CLI) | payer MEDICARE, OTHER | END | disposition home or self-care (01) | LOC: LABPAT 13:05 | PROVIDERS: ATTEND Surgery | DX: Z20.828 Contact with and (suspected) exposure to other viral communicable diseases (principal) | CPT/HCPCS: U0003; C9803 ==

== ENCOUNTER 2020-09-05 13:00 | Day surgery (SDC) | payer MEDICARE, OTHER ==
[2020-08-29 17:51] VITALS: BMI 32.9
[~2020-09-05 13:00] MED LIST changes: -DEXAMETHASONE SOD PHOSPHATE 10 MG/ML 1 ML VIAL IV ONE; +DEXAMETHASONE SOD PHOSPHATE 4 MG/ML 1 ML VIAL IV ONE; +HYDROmorphone 0.5 MG/0.5 ML SYRINGE IVP PRN; -MIDAZOLAM 2 MG/2 ML VIAL IV PRN; +ONDANSETRON 4 MG/2 ML VIAL IVP ONE; +Pre Op ABX Message 1 EACH MISC MISCELLANE ONE; -TRANEXAMIC ACID 1,000 MG in SODIUM CHLORIDE 0.9% 100 ML IVPB ONE
[2020-09-05] MEDS ORDERED: LIDOCAINE 1% (10MG/ML) FOR IV START INTRADERMA ONE (13:40)
[2020-09-05 13:41] VITALS: TEMP 98
[2020-09-05 13:41] LABS: Glucose,Whole Blood 138 mg/dL (75-99)
[2020-09-05] MEDS ORDERED: LIDOCAINE 1% INJ 10MG/ML (20 ML MDV) ONE (14:12)
[2020-09-05] MEDS ORDERED: MIDAZOLAM 2 MG/2 ML VIAL ONE (14:12)
[2020-09-05] MEDS ORDERED: fentaNYL (PF) 50 MCG/ML 2 ML AMP ONE (14:12)
[2020-09-05] MEDS ORDERED: PROPOFOL 10 MG/ML 20 ML VIAL IV ONE (14:12)
[2020-09-05] MEDS ORDERED: BUPIVACAINE (PF) 0.25% 30 ML VIAL SQ ONE ×2 (14:33)
[2020-09-05] MEDS ORDERED: LIDOCAINE 1%-EPI 1:100,000 20 ML VIAL SQ ONE ×2 (14:33)
--- NOTE | 2020-09-05 14:51 | P.OP ---
Date of Procedure: 09/05/20 Preoperative Diagnosis: Sebaceous cyst Postoperative Diagnosis: Sebaceous cyst Procedure(s) Performed: Excision of sebaceous cyst Anesthesia: MAC Surgeon: Alise Aj Pathology: none sent Condition: stable Disposition: PACU Description of Procedure: Patient's taken the operative suite where she prepped and draped in the usual sterile manner under IV sedation. Local anesthetic was instilled into the skin and subcutaneous tissues. An elliptical incision was made and a cyst was excised from the skin and subcutaneous tissues. 2.5 x 1.5 cm incision. It undermined towards the patient's left a centimeter in was 2 cm deep. Subcutaneous tissues were reapproximated using 3-0 Vicryl. Skin was closed with 4-0 Vicryl subcuticular manner. Steri-Strips and dressings were applied. She tolerated the procedure without difficulty and was taken to recovery room in satisfactory condition. According to or personnel, WERE Plan - Discharge Summary Discharge Rx Participant: Yes New Discharge Prescriptions: No Action Pioglitazone HCl [Actos] 45 mg PO DAILY Atorvastatin [Lipitor] 10 mg PO DAILY [facility] Headache Tabs 1 tab PO DIRECTED PRN PRN Reason: Headache Trospium Chloride 20 mg PO BID Omeprazole Magnesium [PriLOSEC OTC] 20 mg PO DAILY Shepherd-3 Fatty Acids/Fish Oil [Fish Oil 1,000 mg Softgel] 1 each PO DAILY Multivit with Calcium,Iron,Min [Women's Multivitamin] 1 each PO DAILY Dulaglutide [Trulicity] 1.5 mg SQ WEEKLY Cranberry 1 tab PO DAILY Discharge Medication List Atorvastatin [Lipitor] 10 mg PO DAILY 09/24/15 [History] Pioglitazone HCl [Actos] 45 mg PO DAILY 09/24/15 [History] Cranberry 1 tab PO DAILY 08/29/20 [History] Dulaglutide [Trulicity] 1.5 mg SQ WEEKLY 08/29/20 [History] Multivit with Calcium,Iron,Min [Women's Multivitamin] 1 each PO DAILY 08/29/20 [History] Shepherd-3 Fatty Acids/Fish Oil [Fish Oil 1,000 mg Softgel] 1 each PO DAILY 08/29/20 [History] Omeprazole Magnesium [PriLOSEC OTC] 20 mg PO DAILY 08/29/20 [History] Trospium Chloride 20 mg PO BID 08/29/20 [History] [employer] Headache Tabs 1 tab PO DIRECTED PRN 08/29/20 [History] Follow up Appointment(s)/Referral(s): Alise Aj DO [Doctor of Osteopathic Medicine] - 2 Weeks Activity/Diet/Wound Care/Special Instructions: Keep the dressing on until Thursday. Ice to the incision for 24-48 hours. Thursday the dressing may be removed any may shower. Light dressing over the incision if rubbing on the clothing or draining. Tylenol or Motrin for discomfort. Call if questions or concerns Discharge Disposition: HOME SELF-CARE
[2020-09-05 15:04] VITALS: RESP 16
[2020-09-05 15:33] VITALS: BP 164/92; PULSE 83
== END 2020-09-05 15:47 | disposition home or self-care (01) ==
LOC: OR 13:00
PROVIDERS: ATTEND Surgery
DX: L72.3 Sebaceous cyst (principal); E78.5 Hyperlipidemia, unspecified; J45.909 Unspecified asthma, uncomplicated; E11.9 Type 2 diabetes mellitus without complications; M19.90 Unspecified osteoarthritis, unspecified site; K21.9 Gastro-esophageal reflux disease without esophagitis; E07.9 Disorder of thyroid, unspecified; G43.909 Migraine, unspecified, not intractable, without status migrainosus; Z98.891 History of uterine scar from previous surgery; Z79.84 Long term (current) use of oral hypoglycemic drugs; Z79.899 Other long term (current) drug therapy; Z88.8 Allergy status to other drugs, medicaments and biological substances; Z98.890 Other specified postprocedural states; Z83.3 Family history of diabetes mellitus; Z82.5 Family history of asthma and other chronic lower respiratory diseases
CPT/HCPCS: 11403; 12031; J2250; J1100; J2405; J2001; J3010; J2704; 88304

== ENCOUNTER → 2021-11-07 | Outpatient (CLI) | payer MEDICARE, OTHER ==
--- NOTE | 2021-11-07 13:40 | BD ---
EXAMINATION TYPE: Axial Bone Density DATE OF EXAM: 11/07/2021 COMPARISON: NONE CLINICAL HISTORY: 71 year old Female. ICD-10 CODE: N95.1 POST MENOPAUSAL SYMPTOMS Height: 63 Weight: 190.7 FRAX RISK QUESTIONS: Alcohol (3 or more units per day): no Family History (Parent hip fracture): no Glucocorticoids (More than 3mos): no (Ex: prednisone, prednisolone, methylprednisolone, dexamethasone, and hydrocortisone). History of Fracture in Adulthood: no Secondary Osteoporosis: 1. Type 1 Diabetes: no 2. Hyperthyroidism: no 3. Menopause before 45: no 4. Malnutrition: no 5. Chronic liver disease: no Rheumatoid Arthritis: no Current Tobacco Use: no RISK FACTORS HISTORY OF: Surgery to Spine/Hip(right/left)/Wrist (right/left): surgery on l spine When: 1996 Family History of Osteoporosis: no Active: no Diet low in dairy products/other sources of calcium: no Postmenopausal woman: yes Lost more than 2 inches in height since high school: no MEDICATIONS: diabetic meds Additional History: EXAM MEASUREMENTS: Bone mineral densitometry was performed using the GBS System. Bone mineral density about the R hip (g/cm2): 0.894 Bone mineral density about the L hip (g/cm2): 0.902 T Score values are as follows: -----R Neck: -1.0 -----L Neck: -1.0 -----R Total: -0.7 -----L Total: -0.3 Bone mineral density : baseline Bone mineral density about the L Wrist (g/cm2): 0.541 T Score values are as follows: -----Dist. R+U:-1.6 -----Prox. R+U: -1.9 -----Radius total: -2.2 Bone mineral density : baseline FRAX %: The graph provided illustrates a 9.0% chance for a major osteoporotic fx and a 1.2% chance fo r the hips probability for fx in 10 years time. IMPRESSION: Osteopenia NOTE: T-SCORE=SD OF THE YOUNG ADULT MEAN.
--- NOTE | 2021-11-12 09:26 | MM ---
Reason for exam: screening (asymptomatic). Last mammogram was performed 1 year and 7 months ago. History: Patient is postmenopausal. Cyst aspiration of the right breast. Physical Findings: A clinical breast exam by your physician is recommended on an annual basis and results should be correlated with mammographic findings. MG 3D Screening Mammo W/Cad Bilateral CC and MLO view(s) were taken. Prior study comparison: April 16, 2020, bilateral MG 3d screening mammo w/cad. December 03, 2018, bilateral MG 3d screening mammo w/cad. The breast tissue is heterogeneously dense. This may lower the sensitivity of mammography. Medial anterior asymmetric density right CC view is more defined. It partially disperses on 3D images. Benign oil cyst and secretory calcifications on the left. ASSESSMENT: Incomplete: need additional imaging evaluation, BI-RAD 0 RECOMMENDATION: Special view mammogram of the right breast. (3D) If lesion persists on supplemental views, image directed ultrasound is recommended. [facility] will attempt to contact patient to return for supplemental views and ultrasound if indicated.
== END | disposition home or self-care (01) ==
LOC: RADMAMWWP 11:53
PROVIDERS: ATTEND Family Medicine
DX: Z12.31 Encounter for screening mammogram for malignant neoplasm of breast (principal); M85.89 Other specified disorders of bone density and structure, multiple sites; Z78.0 Asymptomatic menopausal state
CPT/HCPCS: 77063; 77067; 77080

== ENCOUNTER → 2021-11-15 | Outpatient (CLI) | payer MEDICARE, OTHER ==
--- NOTE | 2021-11-15 14:23 | MM ---
Reason for exam: additional evaluation requested from abnormal screening. Last mammogram was performed less than 1 month ago. History: Patient is postmenopausal. Cyst aspiration of the right breast. Physical Findings: A clinical breast exam by your physician is recommended on an annual basis and results should be correlated with mammographic findings. MG 3D Work Up W/Cad RT Spot compression CC, CCRL, and LM view(s) were taken of the right breast. Prior study comparison: November 07, 2021, bilateral MG 3d screening mammo w/cad. April 16, 2020, bilateral MG 3d screening mammo w/cad. There are scattered fibroglandular densities. No distinct lesion persists on additional views. ASSESSMENT: Negative, BI-RAD 1 RECOMMENDATION: Return to routine screening mammogram schedule for both breasts.
== END | disposition home or self-care (01) ==
LOC: RADMAMWWP 13:36
PROVIDERS: ATTEND Family Medicine
DX: R92.8 Other abnormal and inconclusive findings on diagnostic imaging of breast (principal); Z78.0 Asymptomatic menopausal state
CPT/HCPCS: 77065; G0279; 77061

== ENCOUNTER → 2023-01-01 | Outpatient (CLI) | payer MEDICARE, OTHER ==
--- NOTE | 2023-01-02 19:54 | MM ---
Reason for Exam: Screening (asymptomatic). Last mammogram was performed 1 year(s) and 2 month(s) ago. Patient History: Menarche at age 12. First Full-Term at age 17. Postmenopausal. Cyst Aspiration on the Right side. Risk Values: Estephanie 5 year model risk: 1.2%. NCI Lifetime model risk: 2.7%. Prior Study Comparison: 04/16/2020 Bilateral Screening Mammogram, [facility]. 11/07/2021 Bilateral Screening Mammogram, [facility]. 11/15/2021 Right Diagnostic Mammogram, [facility]. Tissue Density: There are scattered fibroglandular densities. Findings: Analyzed By CAD. There is no suspicious group of microcalcifications or new suspicious mass in either breast. Overall Assessment: Negative, BI-RAD 1 Management: Screening Mammogram of both breasts in 1 year. . Patient should continue monthly self-breast exams. A clinical breast exam by your physician is recommended on an annual basis. This exam should not preclude additional follow-up of suspicious palpable abnormalities. Note on Estephanie scores and lifetime risk: 1. A Estephanie score greater than 3% is considered moderate risk. If this is the case, consider specialist referral to assess eligibility for a risk reducing agent. 2. If overall lifetime risk for the development of breast cancer is 20% or higher, the patient may qualify for future screening with alternating mammogram and breast MRI. Electronically signed and approved by: Vale Kemp M.D. Radiologist
== END | disposition home or self-care (01) ==
LOC: RADMAMWWP 16:29
PROVIDERS: ATTEND Family Medicine
DX: Z12.31 Encounter for screening mammogram for malignant neoplasm of breast (principal); Z78.0 Asymptomatic menopausal state
CPT/HCPCS: 77063; 77067

== ENCOUNTER → 2024-01-05 | Outpatient (CLI) | payer MEDICARE, OTHER ==
--- NOTE | 2024-01-06 19:15 | MM ---
Reason for Exam: Screening (asymptomatic). Last screening mammogram was performed 12 month(s) ago. Patient History: Menarche at age 12. First Full-Term at age 17. Postmenopausal. Cyst Aspiration on the Right side. Risk Values: Estephanie 5 year model risk: 1.2%. NCI Lifetime model risk: 2.5%. Prior Study Comparison: 11/07/2021 Bilateral Screening Mammogram, [facility]. 11/15/2021 Right Diagnostic Mammogram, [facility]. 01/01/2023 Bilateral MG 3D screening mammo w/cad, [facility]. Tissue Density: There are scattered areas of fibroglandular density. Findings: Analyzed By CAD. There is no suspicious group of microcalcifications or new suspicious mass in either breast. Overall Assessment: Negative, BI-RAD 1 Management: Screening Mammogram of both breasts in 1 year. . Patient should continue monthly self-breast exams. A clinical breast exam by your physician is recommended on an annual basis. This exam should not preclude additional follow-up of suspicious palpable abnormalities. Note on Estephanie scores and lifetime risk: 1. A Estephanie score greater than 3% is considered moderate risk. If this is the case, consider specialist referral to assess eligibility for a risk reducing agent. 2. If overall lifetime risk for the development of breast cancer is 20% or higher, the patient may qualify for future screening with alternating mammogram and breast MRI. Electronically signed and approved by: Vale Kemp M.D. Radiologist
== END | disposition home or self-care (01) ==
LOC: RADMAMWWP 13:53
PROVIDERS: ATTEND Family Medicine
DX: Z12.31 Encounter for screening mammogram for malignant neoplasm of breast (principal); Z78.0 Asymptomatic menopausal state
CPT/HCPCS: 77063; 77067

== ENCOUNTER → 2024-01-07 | Outpatient (CLI) | payer MEDICARE, OTHER ==
[2024-01-07 11:48] LABS: INR 0.9 (<1.2); Prothrombin Time 10.1 sec (10.0-12.5)
[2024-01-07 14:24] LABS: HCT 42.7 % (37.2-46.3); HGB 13.9 g/dL (12.0-15.0); MCH 33.3 pg (27.0-32.0); MCHC 32.6 g/dL (32.0-37.0); MCV 102.4 FL (80.0-97.0); Mean Platelet Volume 10.8 FL (9.5-12.2); NRBC Per 100 WBC 0 X 10*3/uL (0.00-0.01); Platelet Count 268 X 10*3/uL (140-440); RBC 4.17 X 10*6/uL (4.10-5.20); RDW 13.5 % (11.5-14.5); WBC 6.34 X 10*3/uL (4.50-10.00)
[2024-01-07 14:25] LABS: ALT 17 U/L (8-44); AST 20 U/L (13-35); Albumin 4.4 g/dL (3.8-4.9); Albumin/Globulin Ratio 2.32 Ratio (1.60-3.17); Alkaline Phosphatase 110 U/L (41-126); BUN/Creat Ratio 28.25 Ratio (12.00-20.00); Blood Urea Nitrogen 22.6 mg/dL (9.0-27.0); Calcium 9.7 mg/dL (8.7-10.3); Carbon Dioxide 24.8 mmol/L (21.6-31.8); Chloride 106 mmol/L (96-109); Globulin 1.9 g/dL (1.6-3.3); Glucose 172 mg/dL (70-110); Potassium 4.1 mmol/L (3.5-5.5); Sodium 143 mmol/L (135-145); Total Bilirubin 0.2 mg/dL (0.3-1.2); Total Protein 6.3 g/dL (6.2-8.2)
== END | disposition home or self-care (01) ==
LOC: LABPAT 10:52
PROVIDERS: ATTEND Orthopaedic Surgery Sports Medicine
DX: Z01.812 Encounter for preprocedural laboratory examination (principal); Z22.322 Carrier or suspected carrier of Methicillin resistant Staphylococcus aureus; M19.011 Primary osteoarthritis, right shoulder
CPT/HCPCS: 36415; 80053; 85027; 85610; 85730; 87070

== ENCOUNTER 2024-02-04 08:01 | Day surgery (SDC) | payer MEDICARE, OTHER ==
[~2024-02-04 08:01] MED LIST changes: -DEXAMETHASONE SOD PHOSPHATE 4 MG/ML 1 ML VIAL IV ONE; -HYDROmorphone 0.5 MG/0.5 ML SYRINGE IVP PRN; -LACTATED RINGERS 1,000 ML IV SCH; -ONDANSETRON 4 MG/2 ML VIAL IVP ONE; +ONDANSETRON 4 MG/2 ML VIAL IVP PRN; -Pre Op ABX Message 1 EACH MISC MISCELLANE ONE; +TRANEXAMIC 1,000 MG/100ML-NACL 1,000 MG in SALINE 1 100ML.BAG IVPB PRN
[2024-02-04] MEDS: GABAPENTIN 300 MG CAP PO PRN (09:02)
[2024-02-04] MEDS: ACETAMINOPHEN TAB 500 MG TAB PO PRN (09:02)
[2024-02-04] MEDS: MELOXICAM 7.5 MG TAB PO PRN (09:03)
[2024-02-04 09:04] LABS: Glucose,Whole Blood 142 mg/dL (70-110)
[2024-02-04] MEDS: DEXAMETHASONE SOD PHOSPHATE 4 MG/ML 1 ML VIAL IV ONE (09:04)
[2024-02-04] MEDS: LACTATED RINGERS 1,000 ML IV SCH ×2 (09:05→15:23)
[2024-02-04] MEDS: ONDANSETRON 4 MG/2 ML VIAL IVP ONE (09:05)
[2024-02-04] MEDS: LIDOCAINE 1% (10MG/ML) FOR IV START INTRADERMA PRN (09:06)
[2024-02-04] MEDS: MIDAZOLAM 2 MG/2 ML VIAL IV ONE (09:18)
[2024-02-04] MEDS: fentaNYL (PF) 50 MCG/ML 2 ML AMP IVP PRN (09:18)
[2024-02-04] MEDS: IV FLUID CONTINUATION 1,000 ML IV ONE (09:32)
[2024-02-04] MEDS ORDERED: diphenhydrAMINE 25 MG CAP PO PRN (09:53)
[2024-02-04] MEDS ORDERED: HYDROmorphone 0.5 MG/0.5 ML SYRINGE IVP PRN ×2 (09:53)
[2024-02-04] MEDS ORDERED: ONDANSETRON 4 MG/2 ML VIAL IVP PRN (09:53)
[2024-02-04] MEDS ORDERED: SENNOSIDES-DOCUSATE SODIUM 1 EACH TAB PO PRN (09:53)
[2024-02-04] MEDS ORDERED: METOCLOPRAMIDE 5 MG/ML 2 ML VIAL IVP PRN (09:53)
--- NOTE | 2024-02-04 10:10 | P.ANPRN ---
Procedure Note - Anesthesia - Nerve Block Performed Left Interscalene Single Time Out Performed: Yes ([id number]) Date of Procedure: 02/04/24 Procedure Start Time: :18 Procedure Stop Time: : Location of Patient: PreOp Indication: Acute Post-Operative Pain, Requested by Surgeon Specifically requested for management of pain by DrFam: Josafat Guardado Sedation Type: Sedate with meaningful contact maintained Preparation: Sterile Prep Position: Supine Catheter: None Needle Types: Pajunk Needle Gauge: 21 Ultrasound used to visualize needle placement: Yes Ultrasound used to observe medication spread: Yes Injectate: 0.5% Ropivacaine (see comment for volume) (30cc) Blood Aspirated: No Pain Paresthesia on Injection Noted: No Resistance on Injection: Normal Image Stored and Saved: Yes Events: Uneventful and Well Tolerated
[2024-02-04] MEDS ORDERED: ROPIVACAINE 5 MG/ML 30 ML VIAL ONE (10:24)
[2024-02-04] MEDS ORDERED: PHENYLEPHRINE-0.9% NACL SYG 1,000 MCG/10 ML SYRINGE ONE (10:24)
[2024-02-04] MEDS ORDERED: ROCURONIUM 10 MG/ML (5 ML VIAL) IV ONE (10:24)
[2024-02-04] MEDS ORDERED: NEOSTIGMINE 1 MG/ML 10 ML VIAL ONE (10:24)
[2024-02-04] MEDS ORDERED: PROPOFOL 10 MG/ML 20 ML VIAL IV ONE (10:24)
[2024-02-04] MEDS ORDERED: SUCCINYLCHOLINE CHLORIDE 200 MG/10 ML VIAL IV ONE (10:24)
[2024-02-04] MEDS ORDERED: TRANEXAMIC 1,000 MG/100ML-NACL PREMIX BAG ONE (10:24)
[2024-02-04] MEDS ORDERED: LIDOCAINE 1% INJ 10MG/ML (20 ML MDV) ONE (10:24)
[2024-02-04] MEDS ORDERED: GLYCOPYRROLATE 0.2 MG/ML 2 ML VIAL ONE (10:24)
[2024-02-04] MEDS: ceFAZolin 1,000 MG in SODIUM CHLORIDE 0.9% 1,000 ML IRRIGATION ONE (10:59)
[2024-02-04] MEDS: LACTATED RINGERS 1,000 ML IV ONE (12:25)
[2024-02-04] MEDS ORDERED: HYDROcodone/APAP 7.5-325MG 1 EACH TAB PO PRN (12:45)
[2024-02-04] MEDS: HYDROmorphone 0.5 MG/0.5 ML SYRINGE IVP PRN (12:56)
[2024-02-04 13:25] LABS: Glucose,Whole Blood 156 mg/dL (70-110)
--- NOTE | 2024-02-04 13:58 | OP ---
OPERATIVE REPORT DATE OF SERVICE : 02/04/2024 SPECIAL EQUIPMENT TECHNICIAN: Ronald Young PA-C. PREOPERATIVE DIAGNOSIS: Left shoulder rotator cuff arthropathy. POSTOPERATIVE DIAGNOSIS: Left shoulder rotator cuff arthropathy. OPERATION: Left reverse total shoulder arthroplasty. ANESTHESIA: General endotracheal. ESTIMATED BLOOD LOSS: 150 mL. DRAINS: None. COMPLICATIONS: None apparent. DISPOSITION: Postanesthesia care unit. INDICATIONS: Audelia is a very pleasant 73-year-old female with longstanding left shoulder pain. Workup including x-rays revealed advanced osteoarthrosis of the left shoulder. At this point, it was felt that she has failed conservative management and she would like to proceed with operative intervention. The risks of procedure were discussed with her in detail. These risks include, but are not limited to risk of infection, nerve damage, bleeding, pain, instability in the shoulder, loosening of the implants, and deep infection. There is also small risk of deep vein thrombosis, which could lead to fatal pulmonary embolism. The patient understands these risks. All of her questions with regard to the risks of procedure were answered to her satisfaction. Appropriate informed consent was obtained. DESCRIPTION OF PROCEDURE: The patient was identified in the preoperative holding area. Surgical site was marked by both patient and myself. She was given 2 g of Ancef IV for prophylactic purposes. She was then transported to the operative suite. She was placed supine on the operating table. General anesthetic was then administered and dosed per the Anesthesia Department without apparent complication. Examination under anesthesia was then performed of the left shoulder. She had elevation to 120 degrees. External rotation to the side was to 30 degrees. The patient was then placed into the beach chair position, well-padded in preparation for surgery. Great care was taken to ensure that the cervical spine is in neutral alignment, well-padded and maintained that way throughout the operative procedure. Great care was also taken to ensure that her legs were appropriately padded as well. The patient's left upper extremity was then prepped and draped in usual sterile fashion. Standard surgical pause undertaken to ensure that we were operating the correct site and that appropriate preoperative antibiotics were given. All staff in the room were in agreement, then we proceeded. The acromion AC joint clavicle and coracoid were marked with a surgical pen. A planned incision starting at the level of the clavicle and extending distally over the deltopectoral interval approximately 1 cm lateral to the coracoid was marked with a surgical pen. The incision was then made with a 10-blade scalpel. Dissection was carried down sharply to the deltoid fascia. The deltopectoral interval was then identified at the level of the clavicle. A small band retractor was then placed onto the proximal deltoid. I then released the deltoid fascia on the lateral aspect of the cephalic vein. The vein was then left in its bed medially. The cephalic vein was protected throughout the entire case. I then identified the clavipectoral fascia. This was incised proximally to the level of the coracoacromial ligament. The coracoacromial ligament was left intact. I then used my finger to spread the interval between the conjoint tendon and the subscapularis. I then felt for the axillary nerve, which was readily palpable. I then cleared the subacromial and subdeltoid spaces of bursal and scar tissue. I then utilized a brown retractor to hold the deltoid and expose the humeral head. I then proceeded with the release of the subscapularis in the anterior-inferior shoulder capsule. The rotator cuff was then inspected. It was found to be intact. The rotator interval was then identified. The course of the biceps tendon was also identified. I then released the rotator interval. It was released at the base of the coracoid and then out laterally. The subscapularis and capsule released intertendinously. The subscapularis and capsule release extended distally in a lazy-S fashion approximately 1 cm medial to the biceps tendon. I then continued to release the capsule along the inferior neck in a vertical fashion to approximately the 6 o'clock position. Great care was taken to ensure that the capsule was always visualized as it was released as to avoid injuring the axillary nerve. I then brought a Hurtado manager china with the arm externally rotated and abducted. I continued to release the capsule inferomedially to the 4 o'clock position. The inferior osteophytes were now removed as well. This was done with a rongeur. I then proceeded with preparation of the humerus. I then removed the subchondral plate from the superior aspect of the humeral head utilizing a large rongeur. I then utilized a starting reamer to gain access to the humeral canal. This was approximately 1 cm medial to the rotator cuff insertion 1 cm posterior to the bicipital groove. I then prepared the humeral canal with hand reaming. I started with a 6 mm reamer and incrementally increased until firm resistance was encountered at 11 mm. The reamer handle was then left in place. I then utilized a humeral resection guide set at 30 degrees of retrotorsion. The cutting block was then set at the previous insertion of the rotator cuff. I then proceeded to osteotomize the humeral head with an oscillating saw. I removed the resection guide and then completed the osteotomy. I then proceeded with trial stem placement. A trial size 11 was then broached in the canal starting with a 6 mm broach and incrementally increasing up to an 11 mm broach. At this point, I did release the biceps tendon. This was tenotomized at the level of the superior labrum. A bone hook was then used to pull the humerus out laterally. I then inspected the joint for any loose bodies. There were none. Again, as noted, she had no supraspinatus or infraspinatus attachment of the rotator cuff. She had a chronic retracted tear. The Bhattman retractor was then placed on the posterior glenoid rim. The arm was placed at approximately 80 degrees of abduction and in slight flexion on the Hurtado stand. I then continued to remove the hypertrophic labrum to definitively identify the actual glenoid. I then utilized the mini base plate guide. The starting pin was then placed in the inferior center aspect of the glenoid in approximately 10 degrees of inferior tilt. The mini base plate reamer was then utilized. As minimal reaming was done as possible to preserve as much subchondral bone as possible. I then placed the real mini base plate. This was impacted into the glenoid. I then placed a central screw. A 30 mm central screw was placed. I had excellent purchase in bone. I was able to rotate the scapula through the screwdriver when that central screw was firmly seated. I then placed peripheral locking screws. The inferior and posterior locking screws were 15 mm screws. The anterior screw was a 20 mm screw and the superior screw was a 15 mm locking screw. I then had the investment representative open a 36 mm glenosphere. It was minimally offset inferiorly. The Rodriguez taper was dried and the glenosphere was impacted onto the real base plate. The wound again was thoroughly irrigated with sterile saline solution with antibiotic added via pulse lavage. I then utilized the IrriSept antiseptic solution at this point in time. I then proceeded to trial with a standard tray and standard poly. It was a mildly difficult reduction. It was taken through full range of motion. There was no impingement noted. The shoulder was then re-reduced. I made a decision to proceed with the standard tray and standard poly. I then had the investment representative open a [employer] 11 mini stem, a standard tray and a standard poly for 36 mm glenosphere. The stem was then impacted into the proximal humerus in approximately 30 degrees of retrotorsion. The Rodriguez taper was dried and then the standard tray standard poly was then impacted onto the real stem. Again, the shoulder was reduced. Again, it was a mildly difficult reduction. It was very stable. There was no impingement noted as it was taken through full range of motion. At this point, we proceeded with closure. I then felt for the axillary nerve which was readily palpable. The wound again was thoroughly irrigated. The remaining IrriSept antiseptic solution was utilized. Approximately 500 mg of vancomycin powder was then placed deep. The deltopectoral interval was reapproximated with 0 Vicryl interrupted suture. The subcutaneous tissue was thoroughly irrigated. The remaining 500 mg of vancomycin powder was utilized. The subcutaneous tissue was closed with 2-0 Vicryl interrupted suture and the skin was closed with a running 3-0 Quill suture. Dermabond was applied at the incision. Sterile compressive dressing was applied and the patient's left upper extremity was placed in a standard sling. All sponge and needle counts were deemed correct prior to closure. The patient tolerated the procedure without apparent complication. She was transferred to recovery room in stable condition. MMODL / IJN: [id number] /
--- NOTE | 2024-02-04 14:04 | XR ---
EXAMINATION TYPE: XR shoulder limited LT DATE OF EXAM: 02/04/2024 COMPARISON: NONE HISTORY: post op TECHNIQUE: Single portable view of the left shoulder FINDINGS: Glenohumeral prosthesis is noted to be in place. Postoperative alignment being near anatomi c. Postsurgical soft tissue changes seen. IMPRESSION: As above
[2024-02-04 17:02] LABS: Glucose,Whole Blood 204 mg/dL (70-110)
[2024-02-04] MEDS ORDERED: ALBUTEROL NEBULIZED 2.5 MG/3 ML INHALATION PRN (19:15)
--- NOTE | 2024-02-04 19:32 | P.CONS ---
History of Present Illness - Reason for Consult Consult date: 02/04/24 Requesting physician: Josafat Guardado - Chief Complaint Medical management - History of Present Illness The patient is 73-year-old white female essentially admitted for left shoulder repair/arthropathy. Patient has no history of [id number] diabetes with history of hypertension and hyperlipidemia which is stable. She is not seen immediately postoperative and doing quite well. Minimal pain is stated. No fever chills no chest pain no voiding difficulties. She is not requesting any type of sleep aid for this evening. She is a non-smoker. Review of Systems Constitutional: Denies chills, Denies fever Eyes: denies blurred vision, denies pain Ears, nose, mouth and throat: Denies headache, Denies sore throat Cardiovascular: Denies chest pain, Denies shortness of breath Respiratory: Denies cough Gastrointestinal: Denies abdominal pain, Denies diarrhea, Denies nausea, Denies vomiting Musculoskeletal: Reports as per HPI Past Medical History Past Medical History: Asthma, Diabetes Mellitus, GERD/Reflux, Hyperlipidemia, Osteoarthritis (OA) Additional Past Medical History / Comment(s): occasional migraines, overactive bladder History of Any Multi-Drug Resistant Organisms: None Reported Past Surgical History: Back Surgery, Section, Cholecystectomy, Joint Replacement Additional Past Surgical History / Comment(s): L5 1979 and 1994 meryl and screws, had it removed and and man made bone inserted, C/Sx2, left knee replaced, Left total shoulder arthroplasty. Past Anesthesia/Blood Transfusion Reactions: No Reported Reaction Past Psychological History: No Psychological Hx Reported Smoking Status: Never smoker Past Alcohol Use History: Occasional Past Drug Use History: None Reported - Past Family History Mother Family Medical History: Diabetes Mellitus Medications and Allergies Home Medications Medication Instructions Recorded Confirmed Type RX: Atorvastatin [Lipitor] 10 mg PO DAILY 09/24/15 02/01/24 History RX: Pioglitazone HCl [Actos] 45 mg PO DAILY 09/24/15 02/01/24 History Dulaglutide [Trulicity] 1.5 mg SQ TH 08/29/20 02/01/24 History Multivit with Calcium,Iron,Min 1 each PO DAILY 08/29/20 02/01/24 History [Women's Multivitamin] Omeprazole Magnesium [PriLOSEC OTC] 20 mg PO DAILY 08/29/20 02/01/24 History RX: Trospium Chloride 20 mg PO BID 08/29/20 02/01/24 History Albuterol Inhaler [Ventolin Hfa 1 - 2 puff INHALATION Q6H PRN 02/01/24 02/01/24 History Inhaler] Allergies Allergy/AdvReac Type Severity Reaction Status Date / Time titanium Allergy Severe FELT VERY Verified 02/04/24 08:39 ILL AFTER BACK SURGERY & HARDWARE WAS REMOVED. diclofenac potassium AdvReac Nausea & Verified 02/04/24 08:39 [From Cataflam] Vomiting fluoxetine HCl [From Prozac] AdvReac Nausea & Verified 02/04/24 08:39 Vomiting Physical Exam Vitals: Vital Signs Temp Pulse Pulse Resp BP BP Pulse Ox 02/04/24 14:20 98.0 F 83 18 133/72 93 L 02/04/24 13:50 82 16 121/60 94 L 02/04/24 13:35 85 16 142/65 95 02/04/24 13:21 88 16 139/65 02/04/24 13:06 84 16 145/64 96 02/04/24 12:51 96.8 F L 99 12 192/97 95 02/04/24 09:29 92 18 141/64 98 02/04/24 08:42 97.1 F L 97 20 164/74 96 Intake and Output 02/04/24 02/04/24 02/04/24 06:59 14:59 22:59 Intake Total 1551 Output Total 150 Balance 1401 Intake: IV 1551 Output: Estimated Blood Loss 150 Other: Weight 84 kg - Constitutional General appearance: average body habitus, no acute distress - EENT Eyes: no abnormal pupil - Neck Neck: no lymphadenopathy - Respiratory Respiratory: bilateral: CTA - Cardiovascular Rhythm: regular Heart sounds: normal: S1, S2 Abnormal Heart Sounds: no S3 Gallop - Gastrointestinal General gastrointestinal: soft, no tenderness Results Labs: Abnormal Lab Results - Last 24 Hours (Table) 02/04/24 02/04/24 02/04/24 Range/Units 09:01 13:23 17:01 POC Glucose (mg/dL) 142 H 156 H 204 H (70-110) mg/dL Assessment and Plan (1) Diabetes Current Visit: Yes Status: Acute Code(s): E11.9 - TYPE 2 DIABETES MELLITUS WITHOUT COMPLICATIONS SNOMED Code(s): 39683901 (2) Arthropathy of shoulder region Current Visit: Yes Status: Acute Code(s): M19.019 - PRIMARY OSTEOARTHRITIS, UNSPECIFIED SHOULDER SNOMED Code(s): 848533731 Plan: Placed on sliding scale. Check CBC and CMP in AM. Reconcile medications. Appreciate consultation. Will follow closely. Pain control per orthopedics. She is a full code otherwise. Anticipate discharge in next 24 hours. Time with Patient: Greater than 30
[2024-02-04 20:25] LABS: Glucose,Whole Blood 216 mg/dL (70-110)
[2024-02-04] MEDS: TROSPIUM CHLORIDE 20 MG TABLET PO SCH (21:31)
[2024-02-05] MEDS: HYDROmorphone 0.5 MG/0.5 ML SYRINGE IVP PRN (01:58)
[2024-02-05] MEDS: HYDROcodone/APAP 7.5-325MG 1 EACH TAB PO PRN (04:35)
[2024-02-05 05:46] LABS: Glucose,Whole Blood 175 mg/dL (70-110)
[2024-02-05] MEDS: PANTOPRAZOLE 40 MG TABLET PO SCH (06:36)
[2024-02-05] MEDS ORDERED: DEXTROSE 50% SYRINGE 50 ML IVP PRN ×2 (07:06)
[2024-02-05 08:00] VITALS: BP 119/63; PULSE 107; RESP 16; TEMP 98.4
[2024-02-05] MEDS: PIOGLITAZONE 45 MG TAB PO SCH (09:31)
[2024-02-05] MEDS: MULTIVITAMINS, THERA 1 EACH TAB PO SCH (09:31)
[2024-02-05] MEDS: INSULIN ASPART (NovoLOG) 100 UNIT/ML VIAL SQ SCH (09:31)
[2024-02-05] MEDS: ATORVASTATIN 10 MG TAB PO SCH (09:31)
[2024-02-05 10:29] LABS: HCT 33.5 % (37.2-46.3); HGB 10.7 g/dL (12.0-15.0); MCH 34.1 pg (27.0-32.0); MCHC 31.9 g/dL (32.0-37.0); MCV 106.7 FL (80.0-97.0); Mean Platelet Volume 11.3 FL (9.5-12.2); NRBC Per 100 WBC 0 X 10*3/uL (0.00-0.01); Platelet Count 234 X 10*3/uL (140-440); RBC 3.14 X 10*6/uL (4.10-5.20); RDW 13.4 % (11.5-14.5); WBC 12.51 X 10*3/uL (4.50-10.00)
[2024-02-05 10:36] LABS: ALT 21 U/L (8-44); AST 28 U/L (13-35); Albumin 3.8 g/dL (3.8-4.9); Albumin/Globulin Ratio 2.24 Ratio (1.60-3.17); Alkaline Phosphatase 103 U/L (41-126); BUN/Creat Ratio 22.88 Ratio (12.00-20.00); Blood Urea Nitrogen 18.3 mg/dL (9.0-27.0); Calcium 8.6 mg/dL (8.7-10.3); Carbon Dioxide 24.7 mmol/L (21.6-31.8); Chloride 103 mmol/L (96-109); Globulin 1.7 g/dL (1.6-3.3); Glucose 167 mg/dL (70-110); Potassium 4.4 mmol/L (3.5-5.5); Sodium 139 mmol/L (135-145); Total Bilirubin 0.3 mg/dL (0.3-1.2); Total Protein 5.5 g/dL (6.2-8.2)
[2024-02-05 11:11] LABS: Basophils # (A) 0.02 X 10*3/uL (0.00-0.10); Basophils % (A) 0.2 %; Eosinophils # (A) 0 X 10*3/uL (0.04-0.35); Eosinophils % (A) 0 %; Lymphocytes # (A) 1.02 X 10*3/uL (0.90-5.00); Lymphocytes % (A) 8.2 %; Monocytes # (A) 1.53 X 10*3/uL (0.20-1.00); Monocytes % (A) 12.2 %; Neutrophils # (A) 9.89 X 10*3/uL (1.80-7.70); RBC Morphology Normal (Normal)
[2024-02-05 12:00] LABS: Glucose,Whole Blood 142 mg/dL (70-110)
--- NOTE | 2024-02-05 13:43 | P.DS ---
Providers Expected date of discharge: 02/05/24 Attending physician: Josafat Guardado Consults: 02/04/24 09:53 Consult Physician Routine Consulting Provider: Willie Borges Consult Reason/Comments: post op medical management Do you want consulting provider notified?: Yes Primary care physician: Willie Borges - Discharge Diagnosis(es) (1) Arthropathy of shoulder region Patient was admitted to the OR on 02/04/24 to undergo a reverse left total shoulder arthroplasty. She had failed conservative measures as an outpatient and desired to proceed with elective surgery after given informed consent. She und erwent the above procedure which she tolerated well without complication. Postoperative hospital course has remained without complication. On day of discharge she is afebrile, vital signs stable, labs within acceptable ranges, tolerating by mouth meds and diet, voiding without difficulty, positive flatus, denies abdominal pain or calf pain, pain is controlled on oral pain medication and has no new complaints. Wound is benign, neurovascular status is intact, calves are soft and nontender, abdomen soft and nontender. Review of systems is negative for numbness, tingling, fever, chills, chest pain, shortness of breath, nausea, vomiting, dizziness, headaches, slurred speech or other. Current Visit: Yes Status: Acute Priority: Medium Procedures: Left reverse TSA Patient Condition at Discharge: Good Plan - Discharge Summary Discharge Rx Participant: Yes New Discharge Prescriptions: New Docusate [Colace] 100 mg PO BID #60 capsule Doxycycline Hyclate 100 mg PO BID #10 tab HYDROcodone/APAP 10-325MG [[place] 10-325] 1 tab PO Q4HR PRN #30 tab PRN Reason: Pain Ondansetron [Zofran] 4 mg PO Q8HR PRN #21 tab PRN Reason: Nausea No Action Pioglitazone HCl [Actos] 45 mg PO DAILY Atorvastatin [Lipitor] 10 mg PO DAILY Trospium Chloride 20 mg PO BID Omeprazole Magnesium [PriLOSEC OTC] 20 mg PO DAILY Multivit with Calcium,Iron,Min [Women's Multivitamin] 1 each PO DAILY Dulaglutide [Trulicity] 1.5 mg SQ TH Albuterol Inhaler [Ventolin Hfa Inhaler] 1 - 2 puff INHALATION Q6H PRN PRN Reason: Shortness Of Breath Discharge Medication List Atorvastatin [Lipitor] 10 mg PO DAILY 02/01/16 [History] Pioglitazone HCl [Actos] 45 mg PO DAILY 09/24/15 [History] Dulaglutide [Trulicity] 1.5 mg SQ TH 08/29/20 [History] Multivit with Calcium,Iron,Min [Women's Multivitamin] 1 each PO DAILY 08/29/20 [History] Omeprazole Magnesium [PriLOSEC OTC] 20 mg PO DAILY 08/29/20 [History] Trospium Chloride 20 mg PO BID 08/29/20 [History] Albuterol Inhaler [Ventolin Hfa Inhaler] 1 - 2 puff INHALATION Q6H PRN 02/01/24 [History] Docusate [Colace] 100 mg PO BID #60 capsule 02/05/24 [Rx] Doxycycline Hyclate 100 mg PO BID #10 tab 02/05/24 [Rx] HYDROcodone/APAP 10-325MG [[place] 10-325] 1 tab PO Q4HR PRN #30 tab 02/05/24 [Rx] Ondansetron [Zofran] 4 mg PO Q8HR PRN #21 tab 02/05/24 [Rx] Follow up Appointment(s)/Referral(s): Josafat Guardado MD [STAFF PHYSICIAN] - 02/12/24 1:15 pm Patient Instructions/Handouts: Shoulder Arthroplasty (DC) Activity/Diet/Wound Care/Special Instructions: keep wound clean and dry take meds as directed f/u in office maintain sling may shower in 3 days if no bleeding Discharge Disposition: HOME SELF-CARE
[2024-02-11] MEDS ORDERED: NON FORMULARY DRUG (Dulaglutide [Trulicity] 1.5 MG/0.5 ML Pen.Injctr) SQ SCH (09:00)
== END 2024-02-05 14:56 | disposition home or self-care (01) ==
LOC: OR 08:01 → 4SSUR 12:36 → OR 02-05 14:56
PROVIDERS: ATTEND Orthopaedic Surgery Sports Medicine
DX: M19.012 Primary osteoarthritis, left shoulder (principal); M75.122 Complete rotator cuff tear or rupture of left shoulder, not specified as traumatic; G89.18 Other acute postprocedural pain; E11.69 Type 2 diabetes mellitus with other specified complication; E78.5 Hyperlipidemia, unspecified; J45.909 Unspecified asthma, uncomplicated; Z88.6 Allergy status to analgesic agent; K21.9 Gastro-esophageal reflux disease without esophagitis; Z88.8 Allergy status to other drugs, medicaments and biological substances; Z79.84 Long term (current) use of oral hypoglycemic drugs; Z79.85 Long-term (current) use of injectable non-insulin antidiabetic drugs; Z79.899 Other long term (current) drug therapy
CPT/HCPCS: 80053; 85025; 73020; 23472; 64415; J2250; J1100; J0690 ×2; J2405; J3010; J1170 ×2